=== PATIENT | female | born 1970 | race Caucasian/White ===

== ENCOUNTER 2025-03-23 16:00 | Emergency (ER) | payer BC ==
[~2025-03-23] VITALS: Ht 172.7 cm; Wt 140.9 kg
[2025-03-23 16:03] VITALS: TEMP 97.9
--- NOTE | 2025-03-23 16:31 | Physician Documentation ---
History of Present Illness ~ Chief Complaint: Extremity Swelling Stated Complaint: "MY LEGS ARE DIFFERENT SIZES" Time Seen by MD: 16:18 Mode of Arrival: POV HPI This is a 54-year-old female with history of DVT who presents with swelling to her left ankle, patient reports no pain. Patient reports she was seen at her surgeon's office for a pre-surgical clearance where it was noted that she had some swelling to the left ankle and therefore was sent to the emergency department for evaluation for DVT. Patient reports that she has been on Xarelto since a DVT several years ago. Patient reports no shortness of breath, chest pain, or other symptoms. Patient reports feeling otherwise well though does have pelvic pain which is being treated by primary care and surgeon and was the purpose of her office visit for surgical clearance, she reports her pain is currently well controlled. Patient reports no other acute symptoms or concerns. Tetanus witin 5 years: No Medication Reconciliation Allergies: Uncoded Allergies: EYE DILATOR (Allergy, Unknown, migraine, 03/23/25) Review of Systems ROS Left lower extremity swelling as stated above in the HPI, otherwise all systems are reviewed and negative. Physical Exam Vital Signs: Temperature: 97.9, Heart Rate: 88, Respiratory Rate: 16, BP: 163/81, Pulse Oximetry: 96, Weight: 140.910 Oxygen Flow Rate: 0 Physical Exam VITALS: Reviewed and as above. GENERAL: Alert, nontoxic appearing, no apparent distress. RESPIRATORY: No increased work of breathing, no respiratory distress, speaking in full clear sentences, lung sounds clear in all [place] CV: Regular rate and rhythm no murmur. Pedal pulses intact bilaterally MUSCULOSKELETAL: Left ankle slightly larger in diameter than right ankle, otherwise no pitting edema SKIN: Warm and dry no erythema, no ecchymosis Progress Results/Orders Results/Orders Orders - BILL CASTELLANO Vl Venous (03/23/25 16:31) Completed Orders - BILL CASTELLANO Vl Venous (03/23/25 16:31) Vital Signs 03/23/25 03/23/25 03/23/25 16:03 16:16 17:43 Temp 97.9 Pulse 88 92 Resp 16 16 16 B/P (MAP) 163/81 152/87 Pulse Ox 96 100 O2 Flow Rate 0 EKG/XRAY/CT/US/VASC/MRI Vascular : Impression EXAM: US Duplex Left Lower Extremity Veins CLINICAL INDICATION: Reason TECHNIQUE: Real-time duplex ultrasound scan of the left lower extremity veins integrating B-mode two-dimensional vascular structure, Doppler spectral analysis, color flow Doppler imaging and compression. COMPARISON: None FINDINGS: DEEP VEINS: Unremarkable. No DVT in the visualized common femoral, femoral, proximal deep femoral or popliteal veins. The veins demonstrate normal color flow, are normally compressible, with normal phasic flow and/or augmentation response. SUPERFICIAL VEINS: Unremarkable. No thrombus in the visualized great saphenous vein. SOFT TISSUES: No acute findings. No popliteal cyst. OTHER FINDINGS: . IMPRESSION: No DVT. Dictated by:DEREK JUNG MD Dictation date and time:03/23/251741 Electronically Signed by: DEREK JUNG MD Date and Time: 03/23/251741 Transcribed: [facility] Medical Decision Making Findings This 54-year-old female presented with swelling to her left ankle, there was some concern for DVT and a vascular ultrasound was obtained, this is vascular ultrasound did not demonstrate evidence of DVT, though did demonstrate evidence of Pennington's cyst which may explain swelling to left lower extremity, patient is otherwise well-appearing reporting no other acute symptoms or concerns including no chest pain or shortness of breath. Physical exam benign and vital signs stable. Patient is appropriate for outpatient follow up. General Diff Dx:Considerations: Include: Fracture, Hematoma, Sprain, Other (CHF, DVT, PE) Departure Disposition: HOME / SELF CARE / HOMELESS Impression: Primary Impression: Edema of lower extremity Condition: Improved Discharge Instructions: Pennington Cyst Additional Instructions: Your ultrasound did not show a blood clot, the ultrasound did show what is known as a Pennington's cyst which is a benign cyst to the back of your knee, please follow up with her primary care provider about this. Please follow up with her primary care provider and surgeon as scheduled. Please return to the emergency department for any new or worsening concerning symptoms. Referrals: NO PRIMARY CARE PROVIDER (PCP) Education Educated: Patient Educated regarding: diagnosis, treatment, prognosis, need for follow up Signature Scribe Signature: No scribe Attestation: The note accurately reflects work and decisions made by me.BALTAZAR Gomez 03/24/25 00:45 BILL CASTELLANO Mar 23, 2025 16:31
[2025-03-23 17:43] VITALS: BP 152/87; PULSE 92; RESP 16; O2SAT 100
--- NOTE | 2025-03-23 17:45 | VASCULAR REPORT ---
EXAM: US Duplex Left Lower Extremity Veins CLINICAL INDICATION: Reason TECHNIQUE: Real-time duplex ultrasound scan of the left lower extremity veins integrating B-mode two -dimensional vascular structure, Doppler spectral analysis, color flow Doppler imaging and compressio n. COMPARISON: None FINDINGS: DEEP VEINS: Unremarkable. No DVT in the visualized common femoral, femoral, proximal deep femoral or popliteal veins. The veins demonstrate normal color flow, are normally compressible, with normal phasic flow and/or augmentation response. SUPERFICIAL VEINS: Unremarkable. No thrombus in the visualized great saphenous vein. SOFT TISSUES: No acute findings. No popliteal cyst. OTHER FINDINGS: . IMPRESSION: No DVT.
== END 2025-03-23 17:46 | disposition home or self-care (01) ==
LOC: ER 16:02
DX: R60.0 Localized edema (principal); Z79.01 Long term (current) use of anticoagulants
CPT/HCPCS: 93971; 99284